=== PATIENT | male | born 1955 | race Hispanic/Latino ===

== ENCOUNTER 2017-05-08 19:22 | Emergency (ER) | payer SELFPAY ==
[2017-05-08 19:40] LABS: #Basophils 0.2 thou/uL (0.0-0.2); #Eosinphils 0.6 thou/uL (0.0-0.7); #Lymphocytes 2.6 thou/uL (1.20-3.40); #Monocytes 0.9 thou/uL (0.11-0.59); %Basophils 1.4 % (0.0-1.0); %Eosinophils 5.1 % (0.0-10.0); %Neutrophils 62.5 % (42.0-75.0); Hemoglobin 15.2 g/dL (14.0-18.0); Mean Corpuscular HGB CONC 32.9 g/dL (32.0-36.0); Mean Corpuscular Hemoglobin 31.3 pg (27.0-31.0); Mean Platelet Volume 9.1 fL (7.4-10.4); Platelet Count 231 thou/uL (130-400); RBC Distribution Width 13.1 % (11.5-14.5); Red Blood Cell (RBC) Count 4.87 mill/uL (4.70-6.10); White Blood Cell (WBC) Count 11.2 thou/uL (4.8-10.8)
[2017-05-08 19:56] LABS: CKMB 1.4 ng/mL (0-6.6); Troponin I Less than 0.010 ng/mL (< 0.028)
[2017-05-08 19:57] LABS: ALT (SGPT) 20 U/L (8-55); AST (SGOT) 23 U/L (5-34); Albumin 4.1 g/dL (3.5-5.0); Alkaline Phosphatase 83 U/L (40-150); Anion Gap 17 mmol/L (10-20); BUN (Urea Nitrogen) 13 mg/dL (8.4-25.7); Bilirubin, Total 0.3 mg/dL (0.2-1.2); Calc. Creatinine Clearance 0 mL/min (70-130); Calcium 9.5 mg/dL (7.8-10.44); Carbon Dioxide 25 mmol/L (22-29); Chloride 103 mmol/L (98-107); Estimated GFR-MDRD Greater than 90; Globulin 3.7 g/dL (2.4-3.5); Glucose 106 mg/dL (70-105); Protein, Total 7.8 g/dL (6.0-8.3); Sodium 141 mmol/L (136-145)
--- NOTE | 2017-05-08 20:26 | RAD ---
TWO VIEWS CHEST 05/08/17 PROVIDED CLINICAL HISTORY: Chest pain. FINDINGS: No comparisons. Cardiac and mediastinal silhouette is within normal limits. There is patchy air space disease suspect ed of the right lung base, compatible with pneumonia in the appropriate clinical context. The lungs a ppear otherwise clear. There is no pleural fluid or pneumothorax definitely apparent. IMPRESSION: Findings suspicious for right lower lobe pneumonia. POS: [facility]
[2017-05-08] MEDS ORDERED: AMOXicillin 250 MG CAP ONE (21:02)
[2017-05-08] MEDS ORDERED: Ibuprofen 800 MG TAB ONE (21:02)
[2017-05-08] MEDS ORDERED: Azithromycin 250 MG TAB ONE ×2 (21:02→21:04)
== END 2017-05-08 21:37 | disposition home or self-care (01) ==
LOC: MADERS 19:22
DX: J18.9 Pneumonia, unspecified organism (principal); F17.210 Nicotine dependence, cigarettes, uncomplicated
CPT/HCPCS: 36415; 71046; 80053; 82553; 83880; 84484; 85025; 85379; 93005